=== PATIENT | male | born 1980 | race Caucasian/White ===

== ENCOUNTER 2018-03-01 14:19 | Emergency (ER) | payer SELFPAY ==
[~2018-03-01] VITALS: Ht 177.8 cm; Wt 67.5 kg
[2018-03-01 14:27] VITALS: BP 145/74
== END 2018-03-01 14:56 | disposition home or self-care (01) ==
LOC: ED 14:25
DX: B86 Scabies (principal)
CPT/HCPCS: 99283

== ENCOUNTER 2019-05-15 14:07 | Emergency (ER) | payer MEDICAID ==
[~2019-05-15] VITALS: Ht 177.8 cm; Wt 72.0 kg
[2019-05-15 14:10] VITALS: BP 104/59
== END 2019-05-15 15:52 | disposition left against medical advice (07) ==
LOC: ED 15:45
DX: L02.512 Cutaneous abscess of left hand (principal)
CPT/HCPCS: 99281